=== PATIENT | female | born 1995 | race Caucasian/White ===

== ENCOUNTER → 2022-01-25 14:07 | Outpatient (CLI) | payer MEDICAID, SELFPAY ==
[2022-01-25 14:57] LABS: Basophils # 0.2 K/mm3 (0-0.2); Basophils % 3.2 % (0.1-2.0); Eosinophils # 0.1 K/mm3 (0.0-0.4); Eosinophils % 1.7 % (0.1-12.0); Hematocrit 41.3 % (37.0-47.0); Hemoglobin 13.4 g/dL (12.2-16.2); Lymphocytes # 1.5 K/mm3 (0.7-4.5); Lymphocytes % 31.9 % (10-50); Mean Corpuscular HGB Conc 32.5 g/dL (31.8-35.4); Mean Corpuscular Hemoglobin 32.6 pg (27.0-31.2); Mean Corpuscular Volume 100.3 fl (81-99); Mean Platelet Volume 7.5 fl (7.4-10.4); Monocytes # 0.3 K/mm3 (0.1-1.0); Monocytes % 5.5 % (1.7-9.3); Neutrophils # 2.7 K/mm3 (1.8-7.8); Neutrophils % 57.7 % (37.0-80.0); Platelet Count 394 K/mm3 (142-424); Red Blood Count 4.12 M/mm3 (4.20-5.40); Red Cell Distribution Width 13.4 % (11.5-17.5); White Blood Count 4.7 K/mm3 (4.8-10.8)
[2022-01-25 15:14] LABS: HCG,Quantitative 701 mIU/ml (0-5.42)
[2022-01-27 06:12] LABS: HIV Screen 4th Generation wRfx Non Reactive (Non Reactive); Hepatitis B Surface Antigen Negative (Negative); Hepatitis C Antibody <0.1 s/co ratio (0.0-0.9)
[2022-01-27 07:22] LABS: Rubella Antibodies, IgG 2.59 index (Immune >0.99)
[2022-01-27 11:12] LABS: Rapid Plasma Reagin Ab Titer Non Reactive (NonRea<1:1)
== END ==
PROVIDERS: Visit Provider Obstetrics & Gynecology
DX: Z34.90 Encounter for supervision of normal pregnancy, unspecified, unspecified trimester (principal)
CPT/HCPCS: 36415; 81241; 84702; 85025; 86592; 86703; 86762; 86850; 87340; 87380; G0432

== ENCOUNTER → 2022-01-27 14:15 | Outpatient (CLI) | payer MEDICAID, SELFPAY ==
[2022-01-27 15:28] LABS: HCG,Quantitative 1752 mIU/ml (0-5.42)
== END ==
PROVIDERS: Visit Provider Obstetrics & Gynecology
DX: Z34.90 Encounter for supervision of normal pregnancy, unspecified, unspecified trimester (principal)
CPT/HCPCS: 36415; 84702

== ENCOUNTER → 2022-02-08 13:54 | Outpatient (CLI) | payer MEDICAID, SELFPAY ==
--- NOTE | 2022-02-08 13:55 | US_ITS ---
FINAL REPORT CLINICAL HISTORY: dates FINDINGS: Sonographic images of the pelvis were obtained. A single, living intrauterine is noted. A yolk sac is present and measures 0.46 cm. [place] to rump length measures 0.46 cm which corresponds to 6 weeks 2 days gestation. Heartbeat is identified and measures 122 beats per minute. The right ovary is within normal limits. The left ovary is within normal limits. IMPRESSION: Single, living, intrauterine gestation with 6 weeks 2 days ultrasound age. Reviewed, Interpreted and Dictated by Timothy Sanchez III, MD Transcribed by Tequila Townsend Authenticated and [facility]
== END ==
PROVIDERS: Visit Provider Obstetrics & Gynecology
DX: Z34.90 Encounter for supervision of normal pregnancy, unspecified, unspecified trimester (principal)
CPT/HCPCS: 76801

== ENCOUNTER 2024-01-15 16:04 | Emergency (ER) | payer MEDICAID, SELFPAY ==
[2024-01-15 17:15] VITALS: BP 124/66; PULSE 74; RESP 18; TEMP 37.1; O2SAT 96; BMI 24.3
[2024-01-15 17:16] VITALS: BP 124/66; PULSE 74; RESP 18; TEMP 37.1; O2SAT 96
--- NOTE | 2024-01-15 17:17 | PC.NURSE ---
Removed stitches from finger
== END 2024-01-15 17:16 | disposition home or self-care (01) ==
LOC: UTC 16:20
PROVIDERS: Emergency Provider Nurse Practitioner Family
DX: Z48.02 Encounter for removal of sutures (principal)